=== PATIENT | male | born 1985 ===

== ENCOUNTER 2021-05-14 19:40 | Emergency (ER) | payer SELFPAY | END 2021-05-14 21:09 | disposition left against medical advice (07) | LOC: EMS 19:43 | DX: F10.10 Alcohol abuse, uncomplicated (principal); Z53.21 Procedure and treatment not carried out due to patient leaving prior to being seen by health care provider ==

== ENCOUNTER 2021-09-10 18:38 | Emergency (ER) | payer SELFPAY ==
[~2021-09-10] VITALS: Ht 170.2 cm; Wt 210.0 kg
[2021-09-10 18:55] VITALS: BP 0/0
== END 2021-09-10 21:00 | disposition left against medical advice (07) ==
LOC: EMS 18:38
DX: Z53.21 Procedure and treatment not carried out due to patient leaving prior to being seen by health care provider (principal)